=== PATIENT | male | born 1980 | race Caucasian/White ===

== ENCOUNTER 2020-01-08 08:37 | Outpatient (CLI) | payer OTHER, SELFPAY ==
[2020-01-08 08:51] LABS: Add Urine Microscopic? NO; Appearance Urine Clear (Clear); Bilirubin Urine Negative (Negative); Blood Urine Negative (Negative); Color Urine Yellow (Yellow); Glucose Urine UA Negative (Negative); Ketones Urine Negative (Negative); Leukocyte Esterase Ur Negative LEU/UL (Negative); Nitrate Urine Negative (Negative); Protein Urine Negative (Negative); Urobilinogen Urine 0.2 mg/dL (0.2-1.0)
[2020-01-08 09:03] LABS: Creatinine Urine 91.76 mg/dL (40-278); Hemoglobin A1C 5.9 % (<5.7); MALB Creatinine Ratio 5.2 mg/g (0-30); Microalbumin Urine Random 4.8 mg/L
[2020-01-08 09:37] LABS: Alanine Aminotransferase 59 U/L (16-63); Albumin Level 4.1 g/dL (3.4-5.0); Alkaline Phosphatase 82 U/L (46-116); Anion Gap 14.4 mmol/L (7-16); Aspartate Amino Transferase 32 U/L (15-37); Bilirubin,Total 0.9 mg/dL (0.00-1.00); Blood Urea Nitrogen 17 mg/dL (7-18); Carbon Dioxide 27 mmol/L (21-32); Chloride 101 mmol/L (98-108); Cholesterol 198 mg/dL (0-200); Creatine Kinase 157 U/L (39-308); Estimated Glomerular Filt Rate > 60; Glucose 105 mg/dL (70-99); HDL Direct 42 mg/dL (40-60); LDL Cholesterol Calculated 118 mg/dL (<130); Osmolality Calculated 287 mOsm/kg (285-295); Potassium 4.4 mmol/L (3.5-5.1); Sodium 138 mmol/L (136-145); Triglycerides 188 mg/dL (0-150)
== END 2020-01-08 08:38 | disposition home or self-care (01) ==
LOC: CHSLAB 08:43
PROVIDERS: PCP Internal Medicine; Visit Provider Internal Medicine
DX: E78.5 Hyperlipidemia, unspecified (principal); R73.01 Impaired fasting glucose
CPT/HCPCS: 36415; 80053; 80061; 81003; 82043; 82550; 83036

== ENCOUNTER 2020-08-19 15:34 | Outpatient (CLI) | payer OTHER, SELFPAY ==
[2020-08-19 15:53] LABS: Basophils Absolute Auto 0.05 K/mm3 (0.00-0.10); Basophils Percent Auto 0.7 % (0.0-1.0); Eosinophils Absolute Auto 0.06 K/mm3 (0.02-0.50); Eosinophils Percent Auto 0.9 % (1.0-6.0); Hematocrit 47.7 % (40.0-54.0); Immature Granulocyte Absolute 0.03 K/mm3 (0.00-0.00); Immature Granulocyte Percent A 0.4 % (0.0-0.0); Lymphocytes Absolute Auto 2.18 K/mm3 (1.10-4.50); Lymphocytes Percent Auto 31.2 % (18.0-42.0); Mean Corpuscular HGB Conc 33.5 g/dL (32.0-36.0); Mean Corpuscular Volume 86.4 fL (78.0-102.0); Mean Platelet Volume 9.9 fl (8.7-11.0); Monocytes Absolute Auto 0.69 K/mm3 (0.10-0.90); Monocytes Percent Auto 9.9 % (2.0-11.0); Neutrophils Percent Auto 56.9 % (50.0-70.0); Platelet Count Result 281 K/mm3 (150-420); Red Blood Count 5.52 M/mm3 (4.70-6.10); Red Cell Distribution Width 12.8 % (11.6-14.4)
[2020-08-19 15:54] LABS: Add Urine Microscopic? NO; Appearance Urine Clear (Clear); Bilirubin Urine Negative (Negative); Blood Urine Negative (Negative); Color Urine Yellow (Yellow); Glucose Urine UA Negative (Negative); Ketones Urine Negative (Negative); Leukocyte Esterase Ur Negative (Negative); Nitrate Urine Negative (Negative); Protein Urine Negative (Negative); Specific Grav Ur >= 1.030 (1.010-1.020); Urobilinogen Urine 0.2 mg/dL (0.2-1.0); pH Urine 5.5 (5.0-8.0)
[2020-08-19 16:02] LABS: Hemoglobin A1C 5.6 % (<5.7)
[2020-08-19 16:31] LABS: Alanine Aminotransferase 57 U/L (16-63); Albumin Level 4.7 g/dL (3.4-5.0); Alkaline Phosphatase 87 U/L (46-116); Anion Gap 10 mmol/L (8-16); Aspartate Amino Transferase 31 U/L (15-37); Bilirubin,Total 1.4 mg/dL (0.00-1.00); Blood Urea Nitrogen 20 mg/dL (7-18); Calcium 9.7 mg/dL (8.5-10.1); Carbon Dioxide 27 mmol/L (21-32); Chloride 101 mmol/L (98-108); Cholesterol 182 mg/dL (0-200); Creatine Kinase 162 U/L (39-308); Estimated Glomerular Filt Rate > 60; Glucose 92 mg/dL (70-99); HDL Direct 35 mg/dL (40-60); LDL Cholesterol Calculated 107 mg/dL (<130); Osmolality Calculated 288 mOsm/kg (285-295); Potassium 4.2 mmol/L (3.5-5.1); Sodium 138 mmol/L (136-145); Total Protein 7.6 g/dL (6.4-8.2); Triglycerides 202 mg/dL (0-150)
== END 2020-08-19 15:35 | disposition home or self-care (01) ==
LOC: CHSLAB 15:35
PROVIDERS: PCP Internal Medicine; Visit Provider Internal Medicine
DX: R73.01 Impaired fasting glucose (principal); I10 Essential (primary) hypertension; E78.2 Mixed hyperlipidemia; J44.9 Chronic obstructive pulmonary disease, unspecified
CPT/HCPCS: 36415; 80053; 80061; 81003; 82550; 83036; 85025

== ENCOUNTER 2022-06-22 14:56 | Emergency (ER) | payer OTHER, SELFPAY ==
[2022-06-22 15:03] VITALS: BP 155/95; PULSE 107; RESP 18; TEMP 36.7; O2SAT 95
[2022-06-22] MEDS: LIDOCAINE HCL 1% PF 30 ML VIAL (16:01)
--- NOTE | 2022-06-22 16:08 | ED.GENADULT ---
HPI - General Adult General Chief complaint: Unspecified Stated complaint: hemorrhoids Time Seen by Provider: 06/22/22 15:16 History of Present Illness HPI narrative: Patient is a 42-year-old male who presents ER with concern for hemorrhoids. He has been applying A&E ointment as well as Preparation H with scheduled pads for several days without improvement. Has history of hemorrhoids previously. No bleeding. Reports that all began when he had 2 days of diarrhea that he caught from his child. He can feel swelling in his left rectal region but no treatments improvement. Review of Systems Review of Systems: All systems reviewed & are unremarkable except as noted in HPI and below Constitutional: Constitutional: Denies chills and Denies fever(s) Gastrointestinal: Gastrointestinal: Reports diarrhea, Denies nausea and Denies vomiting Comments: rectal pain PMFSH Past Medical History Medical History (Updated 06/22/22 @ 16:21 by Breezy Desouza MD) Hyperlipidemia Hypertension Surgical History Surgical History (Updated 06/22/22 @ 16:21 by Breezy Desouza MD) No pertinent past surgical history Exam Narrative: GENERAL: Well-appearing, well-nourished, and in no acute distress. HEAD: Normocephalic, atraumatic. ENT: Mucous membranes moist. CHEST: Clear to auscultation. No respiratory distress. HEART: Regular rate and rhythm. Normal peripheral pulses. Rectal: Nonthrombosed nonbleeding external hemorrhoid on the right side. Left perianal area with fluctuant abscess but no cellulitis. EXTREMITIES: Normal range of motion. No edema. SKIN: Warm, dry, no rash. NEURO: Alert and oriented x3. PSYCH: Normal mood and affect. Course Vital Signs Vital signs: Vital Signs Temperature 98.0 F 06/22/22 15:03 Pulse Rate 107 H 06/22/22 15:03 Respiratory Rate 18 06/22/22 15:03 Blood Pressure 155/95 H 06/22/22 15:03 Pulse Oximetry 95 06/22/22 15:03 Temperature 98.0 F 06/22/22 15:03 Pulse Rate 107 H 06/22/22 15:03 Respiratory Rate 18 06/22/22 15:03 Blood Pressure 155/95 H 06/22/22 15:03 Pulse Oximetry 95 06/22/22 15:03 Procedures Abscess I/D fernando-rectal: Date of Incision: 06/22/22 Time of Incision: 15:50 Side (if applicable): left Local Anesthetic: lidocaine 1% Amount of anesthesia used (mL): 2 Technique: incised with #11 blade Packing used?: iodoform I&D Results: Pus Medical Decision Making Vital Signs Vital Signs: Vital Signs Temperature 98.0 F 06/22/22 15:03 Pulse Rate 107 H 06/22/22 15:03 Respiratory Rate 18 06/22/22 15:03 Blood Pressure 155/95 H 06/22/22 15:03 Pulse Oximetry 95 06/22/22 15:03 Temperature 98.0 F 06/22/22 15:03 Pulse Rate 107 H 06/22/22 15:03 Respiratory Rate 18 06/22/22 15:03 Blood Pressure 155/95 H 06/22/22 15:03 Pulse Oximetry 95 06/22/22 15:03 Discharge Plan Discharge Clinical Impression: Perianal abscess Patient Disposition: Home, Self-Care Condition: Stable Instructions: Antibiotic Form, Rectal Abscess (ED), Abscess Incision and Drainage (DC) Additional Instructions: You had an abscess incised and drained in the ER. Remove your packing in 2 days. Take Bactrim DS to help with healing. Take hydrocodone with acetaminophen for pain. Return to the ER if you have increased pain, you have fever over 100.4 ?F, or you have additional concerns. Prescriptions: New sulfamethoxazole-trimethoprim [Bactrim DS] 800-160 mg tablet 1 tablet PO Q12H Qty: 14 0RF hydrocodone-acetaminophen 5-325 mg tablet 1 tablet PO Q6H PRN (Reason: pain) Qty: 10 0RF Follow-up/Referrals: Juana Magana MD [Primary Care Provider] - Homer Aponte MD [Physician] - 1 Week
== END 2022-06-22 16:52 | disposition home or self-care (01) ==
LOC: ANHED 16:44
PROVIDERS: Emergency Provider Emergency Medicine; PCP Internal Medicine
DX: K61.0 Anal abscess (principal); E78.5 Hyperlipidemia, unspecified; I10 Essential (primary) hypertension; K64.4 Residual hemorrhoidal skin tags
CPT/HCPCS: 46040; 46050; 99283

== ENCOUNTER 2022-07-23 07:55 | Emergency (ER) | payer OTHER, SELFPAY ==
--- NOTE | 2022-07-23 08:24 | ED.SKABFB ---
HPI - Skin/Abscess/Foreign Bdy General Chief complaint: Skin/Abscess/Foreign Body Stated complaint: perianal abscess Time Seen by Provider: 07/23/22 07:57 History of Present Illness HPI narrative: Patient is a 42-year-old male who presents ER with concerns for perianal abscess. Recently had 1 incised and drained. He felt like it healed well. Over the last couple days he has had recurrence and feels like there is some induration extending out into his buttock no drainage. No fevers or chills or sweats. Related Data Allergies Allergy/AdvReac Type Severity Reaction Status Date / Time No Known Allergies Allergy Verified 07/23/22 07:59 Review of Systems Constitutional: Constitutional: Denies chills and Denies fever(s) Gastrointestinal: Gastrointestinal: Denies abdominal pain, Denies diarrhea, Denies nausea and Denies vomiting Integumentary/Breasts: Skin/Breast: Denies rash and Denies skin ulcer Comments: Abscess near the rectum left buttock with some induration of the skin. PMFSH Past Medical History Medical History (Updated 07/23/22 @ 08:41 by Breezy Desouza MD) Hyperlipidemia Hypertension Surgical History Surgical History (Updated 06/22/22 @ 16:21 by Breezy Desouza MD) No pertinent past surgical history Exam Narrative: GENERAL: Well-appearing, well-nourished, and in no acute distress. HEAD: Normocephalic, atraumatic. Rectal: Left perianal abscess about 1-1/2 cm in diameter. No significant surrounding cellulitis or induration. Small nonthrombosed nonbleeding hemorrhoid on the right side. EXTREMITIES: Normal range of motion. No edema. SKIN: Warm, dry, no rash. NEURO: Alert and oriented x3. PSYCH: Normal mood and affect. Course Course Emergency Course: Abscess I&D needed. Likely a cystic abscess. Again recommend he follow-up with general surgery. Procedures Abscess I/D fernando-rectal: Date of Incision: 07/23/22 Time of Incision: 08:39 Side (if applicable): left Local Anesthetic: lidocaine 1% Amount of anesthesia used (mL): 2 Technique: incised with #15 blade Irrigation: No Packing used?: iodoform I&D Results: Pus Discharge Plan Discharge Clinical Impression: Perianal abscess Patient Disposition: Home, Self-Care Condition: Stable Instructions: Antibiotic Form, Abscess (ED) Additional Instructions: Return the ER if you have increased pain, you cannot keep down food or water, you have fever over 100.4 ?F, you have additional concerns. Prescriptions: New cefuroxime axetil 500 mg tablet 500 mg PO BID Qty: 10 0RF No Action sulfamethoxazole-trimethoprim [Bactrim DS] 800-160 mg tablet 1 tablet PO Q12H Qty: 14 0RF hydrocodone-acetaminophen 5-325 mg tablet 1 tablet PO Q6H PRN (Reason: pain) Qty: 10 0RF Follow-up/Referrals: Mari Pugh MD [Physician] - 1 Week Juana Magana MD [Primary Care Provider] - 1 Week
[2022-07-23 08:54] VITALS: BP 135/95; PULSE 102; RESP 14; O2SAT 94
== END 2022-07-23 08:45 | disposition home or self-care (01) ==
PROVIDERS: Emergency Provider Emergency Medicine; PCP Internal Medicine
DX: K61.0 Anal abscess (principal); E78.5 Hyperlipidemia, unspecified; I10 Essential (primary) hypertension
CPT/HCPCS: 46040; 46050; 99283

== ENCOUNTER 2023-01-25 12:18 | Outpatient (CLI) | payer OTHER, SELFPAY ==
[2023-01-25 13:11] LABS: Anion Gap 10 mmol/L (8-16); Blood Urea Nitrogen 51 mg/dL (7-18); Calcium 11.1 mg/dL (8.5-10.1); Carbon Dioxide 29 mmol/L (21-32); Chloride 103 mmol/L (98-108); Estimated Glomerular Filt Rate 21; Glucose 95 mg/dL (70-99); Osmolality Calculated 307 mOsm/kg (285-295); Potassium 4.4 mmol/L (3.5-5.1); Sodium 142 mmol/L (136-145)
== END 2023-01-25 12:19 | disposition home or self-care (01) ==
LOC: CHSLAB 12:20
PROVIDERS: PCP Internal Medicine; Visit Provider Internal Medicine
DX: I10 Essential (primary) hypertension (principal)
CPT/HCPCS: 36415; 80048

== ENCOUNTER 2024-10-26 08:29 | Observation (INO) | payer OTHER, SELFPAY ==
[2024-10-26] VITALS (8 sets, daily range): BP systolic 119–152; BP diastolic 75–115; PULSE 75–124; RESP 12–23; TEMP 36.1–37; O2SAT 92–98; BMI 43.4
--- NOTE | ~2024-10-26 | CT_ITS ---
EXAMINATION: CT abdomen pelvis w con DATE: 10/26/2024 09:27 INDICATION: Abdominal distention and pain. Tachycardia. TECHNIQUE: Computed tomography (CT) of the abdomen and pelvis was performed with 100 mL Omnipaque-350 intravenous contrast. Automated exposure control and iterative reconstruction technique were employe d. The dose-length product was 1402.03 mGy-cm. COMPARISON: Abdominal ultrasound dated 12/18/2016 FINDINGS: Elevation the right hemidiaphragm with right basilar atelectasis. Heart size is normal. No pericardia l or pleural effusion. Dilation the common bile duct which measures up to 1.5 cm likely related to pr ior cholecystectomy with surgical clips the gallbladder fossa. No intrahepatic biliary ductal dilatio n. Diffuse hepatic steatosis. There are a couple low-attenuation hepatic cysts the larger measuring 1 .6 cm in the right hepatic lobe, both which can be seen on the prior ultrasound. Spleen, pancreas, bi lateral adrenal glands and kidneys are normal. There is fluid throughout multiple loops of small jessica l as well as proximal colon consistent with nonspecific diarrhea. There is mucosal enhancement and ed ematous wall thickening of multiple loops of ileum in the right lower quadrant extending to the termi nal ileum consistent with nonspecific ileitis. Bladder and prostate are normal. Small amount of ascit es in the lower abdomen and pelvis. No abscess or free intraperitoneal gas. Small bilateral fat-conta ining inguinal hernias. No pathologically enlarged abdominal or pelvic lymphadenopathy. Severe spondy losis at L5-S1. Otherwise mild spondylosis and more cephalad lumbar and lower thoracic spine. Chronic appearing minimal anterior wedging at T7 and T8. IMPRESSION: 1. Wall thickening in the distal ileum consistent with nonspecific ileitis which could be infectious or inflammatory in etiology. 2. Likely secondary diarrhea with fluid in the proximal colon. 3. Diffuse hepatic steatosis. 4. Right basilar atelectasis along side the elevated right hemidiaphragm. Reviewed, dictated and finalized at location A. IMPRESSION: 1. Wall thickening in the distal ileum consistent with nonspecific ileitis whic h could be infectious or inflammatory in etiology. 2. Likely secondary diarrhea with fluid in the proximal colon. 3. Diffuse hepatic steatosis. 4. Right basilar atelectasis along side the elevated right hemidiaphragm.
[2024-10-26 08:47] LABS: Basophils Absolute Auto 0.1 K/mm3 (0.0-0.1); Basophils Percent Auto 0.5 % (0.2-1.2); Eosinophils Absolute Auto 0.1 K/mm3 (0-0.3); Eosinophils Percent Auto 0.6 % (0-4.4); Hematocrit 61.2 % (42.0-52.0); Immature Granulocyte Absolute 0.05 K/mm3 (0.00-0.031); Immature Granulocyte Percent A 0.4 % (0-0.5); Lymphocytes Absolute Auto 1.46 K/mm3 (0.9-3.2); Lymphocytes Percent Auto 10.7 % (18.3-44.2); Mean Corpuscular HGB Conc 32.7 g/dl (32-36); Mean Corpuscular Hemoglobin 29.5 pg (26-34); Mean Corpuscular Volume 90.1 fl (80-100); Mean Platelet Volume 9.9 fl (7.4-10.4); Monocytes Absolute Auto 1.2 K/mm3 (0.1-0.6); Monocytes Percent Auto 8.9 % (2.6-8.5); Neutrophils Absolute Auto 10.8 K/mm3 (1.3-6.7); Neutrophils Percent Auto 78.9 % (45.5-73.1); Platelet Count Result 312 k/mm3 (150-375); Red Blood Count 6.79 M/mm3 (4.6-6.20); Red Cell Distribution Width 13.7 % (11.5-14.5); White Blood Count 13.7 K/mm3 (4.5-10.0)
[2024-10-26 08:58] LABS: Alanine Aminotransferase 95 U/L (6-50); Albumin Level 4.9 g/dL (3.5-5.1); Alkaline Phosphatase 85 U/L (38-126); Anion Gap 12 mmol/L (4-12); Aspartate Amino Transferase 68 U/L (17-59); Bilirubin,Total 2.1 mg/dL (0.2-1.3); Blood Urea Nitrogen 14 mg/dL (9-20); Calcium 9.8 mg/dL (8.4-10.2); Carbon Dioxide 24 mmol/L (22-30); Chloride 101 mmol/L (98-107); Estimated CRCL calculation 115 ml/min; Estimated Glomerular Filt Rate > 60; Glucose 128 mg/dL (65-110); Lipase 135 U/L (23-300); Potassium 4.2 mmol/L (3.4-5.0); Sodium 137 mmol/L (137-145)
--- NOTE | 2024-10-26 08:59 | ED.ABDPAIN ---
HPI - Abdominal Pain General Chief Complaint: Abdominal Pain Stated Complaint: abd pain Time Seen by Provider: 10/26/24 08:35 History of Present Illness HPI narrative: 44-year-old male with a history of hypertension, hyperlipidemia presenting with abdominal pain. Started 3-4 days ago and has been progressively worsening. Feels very distended. States that he has had very small bowel movements have only diarrhea. He has been passing a small amount of flatus. He had similar symptoms a few months ago but it only lasted for about a day so he was hoping that this episode resolved on its own. Prior surgical history of cholecystectomy. Related Data Home Medications ?Medication ?Instructions ?Recorded ?Confirmed ?Last Taken ?Type atorvastatin 40 mg tablet 40 mg PO DAILY 07/27/22 07/31/22 Unknown History fenofibrate 40 mg tablet 40 mg PO DAILY 07/27/22 07/31/22 Unknown History hydrochlorothiazide 12.5 mg tablet 12.5 mg PO DAILY 07/27/22 07/31/22 Unknown History Allergies Allergy/AdvReac Type Severity Reaction Status Date / Time No Known Allergies Allergy Verified 10/26/24 08:38 Review of Systems Review of Systems: All systems reviewed & are unremarkable except as noted in HPI and below PMFSH Past Medical History Medical History Hyperlipidemia Hypertension Surgical History Surgical History History of surgery on arm History of cholecystectomy Family History Family History Father Hypertension Social History Social History Social History: caffeine use: drinks soda occasionally Years smoked: 23 Smoking status: Former smoker Tobacco type: cigars Additional smoking assessment comments: Smokes 4-5 cigars/year Alcohol intake: current Alcohol use details: drinks bourbon & vodka weekly Additional living arrangements comments: Additional occupation/education comments: chef manager Exam Narrative: GENERAL: Appears uncomfortable, nontoxic, pleasant cooperative HEAD: Normocephalic, atraumatic. EYES: PERRLA and EOMI. ENT: Mucous membranes moist. NECK: Supple. CHEST: Clear to auscultation. No respiratory distress. HEART: Tachycardic, regular rhythm ABDOMEN: Distended abdomen with diffuse tenderness but especially in the upper quadrants EXTREMITIES: Normal range of motion. SKIN: Warm, dry, no rash. NEURO: No focal deficits. Alert and oriented x3. PSYCH: Normal mood and affect. Course Vital Signs Vital signs: Vital Signs Temperature 97.9 F 10/26/24 08:35 Pulse Rate 124 H 10/26/24 08:35 Respiratory Rate 20 10/26/24 08:35 Blood Pressure 138/115 H 10/26/24 08:35 Pulse Oximetry 97 10/26/24 08:35 Oxygen Delivery Room Air 10/26/24 08:35 Temperature 97.9 F 10/26/24 08:35 Pulse Rate 118 H 10/26/24 10:42 Respiratory Rate 23 H 10/26/24 10:42 Blood Pressure 131/85 10/26/24 10:42 Pulse Oximetry 95 10/26/24 10:42 Oxygen Delivery Room Air 10/26/24 08:35 MDM - Abdominal Pain MDM Narrative Medical decision making narrative: 44-year-old male presenting with abdominal pain. Patient tachycardic, otherwise vitals within normal limits. Exam remarkable for the above. Blood work with white count of 13.7, hemoglobin of 20. Lactic acid 2.3. UA with positive nitrates, bacteria, numerous casts. IV fluids are ongoing. CT abdomen pelvis shows ileitis and diarrheal state, no other acute abnormalities. IV Rocephin and Flagyl have been ordered. Feel he would benefit from admission for IV hydration and antibiotics. He is agreeable this plan. I spoke with the hospitalist who has accepted him for admission. Differential Diagnosis Differential diagnosis: Likely abdominal pain, acute appendicitis, constipation, gastroenteritis, pancreatitis and small bowel obstruction Medical Records Attestation: I reviewed the patient's medical records. Lab Data Attestation: I reviewed the patient's lab results. 10/26/24 08:42 10/26/24 08:42 Labs: Lab Results 10/26/24 10/26/24 10/26/24 Range/Units 08:42 08:46 08:50 WBC 13.7 H (4.5-10.0) K/mm3 RBC 6.79 H (4.6-6.20) M/mm3 Hgb 20.0 H (14.0-18.0) g/dL Hct 61.2 H (42.0-52.0) % MCV 90.1 (80-100) fl MCH 29.5 (26-34) pg MCHC 32.7 (32-36) g/dl RDW 13.7 (11.5-14.5) % Plt Count 312 (150-375) k/mm3 MPV 9.9 (7.4-10.4) fl Immature Gran % (Auto) 0.4 (0-0.5) % Neut % (Auto) 78.9 H (45.5-73.1) % Lymph % (Auto) 10.7 L (18.3-44.2) % [place] % (Auto) 8.9 H (2.6-8.5) % Eos % (Auto) 0.6 (0-4.4) % Baso % (Auto) 0.5 (0.2-1.2) % Lymph # (Auto) 1.46 (0.9-3.2) K/mm3 [place] # (Auto) 1.2 H (0.1-0.6) K/mm3 Eos # (Auto) 0.1 (0-0.3) K/mm3 Baso # (Auto) 0.1 (0.0-0.1) K/mm3 Abs Immat Gran (auto) 0.05 H (0.00-0.031) K/mm3 Absolute Neuts (auto) 10.8 H (1.3-6.7) K/mm3 Absolute Nucleated RBC 0.000 (0.0-0.012) K/mm3 Nucleated RBC % 0.0 (0.0-0.2) % Sodium 137 (137-145) mmol/L Potassium 4.2 (3.4-5.0) mmol/L Chloride 101 (98-107) mmol/L Carbon Dioxide 24 (22-30) mmol/L Anion Gap 12 (4-12) mmol/L BUN 14 (9-20) mg/dL Creatinine 0.93 (0.7-1.3) mg/dL Estim Creat Clear Calc 115 ml/min Estimated GFR > 60 (59 - ) Glucose 128 H (65-110) mg/dL Lactic Acid 2.3 H (0.7-2.0) mmol/L Calcium 9.8 (8.4-10.2) mg/dL Total Bilirubin 2.1 H (0.2-1.3) mg/dL AST 68 H (17-59) U/L ALT 95 H (6-50) U/L Alkaline Phosphatase 85 (38-126) U/L Total Protein 8.0 (6.3-8.2) g/dL Albumin 4.9 (3.5-5.1) g/dL Lipase 135 (23-300) U/L Urine Color Dark yellow (Yellow) Urine Appearance Cloudy H (Clear) Urine pH 5.5 (5.0-9.0) Ur Specific [place] 1.033 (1.001-1.035) Urine Protein 1+ H (Negative) mg/dL Urine Glucose (UA) Negative (Negative) mg/dL Urine Ketones 1+ H (Negative) mg/dL Ur Blood (Man) Negative (Negative) Urine Nitrate Positive H (Negative) Urine Bilirubin 2+ H (Negative) Urine Urobilinogen 1.0 (<2.0) mg/dL Add Ur Microanalysis Reviewed Leukocyte Esterase Rfl Trace H (Negative) CADY/UL Urine RBC 0-2 (0-2) /hpf Urine WBC 0-5 (0-3) /hpf Ur Squamous Epith Cells Occasional (Few) /hpf Urine Bacteria 1+ /hpf Urine Casts 11-20 Hyaline Casts Present (None) /lpf Urine Mucus Present /lpf /11/15 Range/Units 11:32 WBC (4.5-10.0) K/mm3 RBC (4.6-6.20) M/mm3 Hgb (14.0-18.0) g/dL Hct (42.0-52.0) % MCV (80-100) fl MCH (26-34) pg MCHC (32-36) g/dl RDW (11.5-14.5) % Plt Count (150-375) k/mm3 MPV (7.4-10.4) fl Immature Gran % (Auto) (0-0.5) % Neut % (Auto) (45.5-73.1) % Lymph % (Auto) (18.3-44.2) % [place] % (Auto) (2.6-8.5) % Eos % (Auto) (0-4.4) % Baso % (Auto) (0.2-1.2) % Lymph # (Auto) (0.9-3.2) K/mm3 [place] # (Auto) (0.1-0.6) K/mm3 Eos # (Auto) (0-0.3) K/mm3 Baso # (Auto) (0.0-0.1) K/mm3 Abs Immat Gran (auto) (0.00-0.031) K/mm3 Absolute Neuts (auto) (1.3-6.7) K/mm3 Absolute Nucleated RBC (0.0-0.012) K/mm3 Nucleated RBC % (0.0-0.2) % Sodium (137-145) mmol/L Potassium (3.4-5.0) mmol/L Chloride (98-107) mmol/L Carbon Dioxide (22-30) mmol/L Anion Gap (4-12) mmol/L BUN (9-20) mg/dL Creatinine (0.7-1.3) mg/dL Estim Creat Clear Calc ml/min Estimated GFR (59 - ) Glucose (65-110) mg/dL Lactic Acid 0.9 (0.7-2.0) mmol/L Calcium (8.4-10.2) mg/dL Total Bilirubin (0.2-1.3) mg/dL AST (17-59) U/L ALT (6-50) U/L Alkaline Phosphatase (38-126) U/L Total Protein (6.3-8.2) g/dL Albumin (3.5-5.1) g/dL Lipase (23-300) U/L Urine Color (Yellow) Urine Appearance (Clear) Urine pH (5.0-9.0) Ur Specific [place] (1.001-1.035) Urine Protein (Negative) mg/dL Urine Glucose (UA) (Negative) mg/dL Urine Ketones (Negative) mg/dL Ur Blood (Man) (Negative) Urine Nitrate (Negative) Urine Bilirubin (Negative) Urine Urobilinogen (<2.0) mg/dL Add Ur Microanalysis Leukocyte Esterase Rfl (Negative) CADY/UL Urine RBC (0-2) /hpf Urine WBC (0-3) /hpf Ur Squamous Epith Cells (Few) /hpf Urine Bacteria /hpf Urine Casts Hyaline Casts (None) /lpf Urine Mucus /lpf Imaging Data Radiologist's impression: ITS Impressions Abdomen/Pelvis CT 10/26/24 09:35 IMPRESSION: 1. Wall thickening in the distal ileum consistent with nonspecific ileitis which could be infectious or inflammatory in etiology. 2. Likely secondary diarrhea with fluid in the proximal colon. 3. Diffuse hepatic steatosis. 4. Right basilar atelectasis along side the elevated right hemidiaphragm. Critical Care Time Critical Care Time Critical Care Time: No Discharge Plan Discharge Clinical Impression: Ileitis, Diarrhea, UTI (urinary tract infection), Dehydration Patient Disposition: Still a Patient Condition: Stable Instructions: Antibiotic Form Patient Language: Malagasy Prescriptions: No Action atorvastatin 40 mg tablet 40 mg PO DAILY hydrochlorothiazide 12.5 mg tablet 12.5 mg PO DAILY fenofibrate 40 mg tablet 40 mg PO DAILY cefuroxime axetil 500 mg tablet 500 mg PO BID Qty: 10 0RF Follow-up/Referrals: Juana Magana MD [Primary Care Provider] -
[2024-10-26 09:02] LABS: Add Urine Microscopic? YES; Appearance Urine Cloudy (Clear); Bilirubin Urine 2+ (Negative); Blood Urine Negative (Negative); Glucose Urine UA Negative (Negative); Ketones Urine 1+ mg/dL (Negative); Leukocyte Esterase Ur Trace LEU/UL (Negative); Nitrate Urine Positive (Negative); Protein Urine 1+ mg/dL (Negative); RBC Urine 0-2 /hpf (0-2); Specific Grav Ur 1.033 (1.001-1.035); Squamous Epithelial Cell Urine Occasional /hpf (Few); WBC Urine 0-5 /hpf (0-3); pH Urine 5.5 (5.0-9.0)
[2024-10-26 09:06] LABS: Lactic Acid Reflex 2.3 mmol/L (0.7-2.0)
[2024-10-26 09:06] LABS: Hyaline Casts Urine Present /lpf; Mucus Urine Present /lpf; Need Manual Microscopic Reviewed
[2024-10-26 09:07] LABS: Bacteria Urine 1+ /hpf; Color Urine Dark Yellow (Yellow)
[2024-10-26] MEDS: SODIUM CHLORIDE 0.9% IV 1,000 ML 999 ML IV CONT ×2 (09:14→10:41)
[2024-10-26] MEDS: HYDROmorphone HCL INJ (*CRX) 2 MG/ML VIAL 0.5 MG IV PUSH ×2 (09:14→13:22)
[2024-10-26] MEDS: ONDANSETRON INJ 4 MG/2 ML VIAL IV PUSH (09:14)
--- NOTE | 2024-10-26 09:17 | PC.NURSE ---
Pt to CT scan via stretcher at this time. Fluids infusing, medications given.
[2024-10-26] MEDS: HYDROmorphone HCL INJ (*CRX) 2 MG/ML VIAL 1 MG IV PUSH (10:12)
--- OUTSIDE RECORDS SUMMARY | 2024-10-26 10:28 | XMS_ITS | Clinical Summary ---
Author Organization [facility] [employer] Address [address] [place] [address] Care Team Providers Care Barrel Lathe Operator Name Role Phone Dutch Silva MD Primary Care Provider [phone] Source Comments [facility] [employer],non-owned Affiliates and Associated Physician Practices is amultiple site organization consisting of ambulatory clinics and hospital sitesin [place], [place], [place] and [place]. This disclosure is being madepursuant to the Care Everywhere program and may not contain all information available regarding this patient. Last updated 18.[facility] [employer] Allergies No known active allergies Medications * Be aware that medications may not be up to date on this document. Alwaysverify current medications with the patient. 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 Gender Identity Not on file Sexual Orientation Not on file 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 Not on file Not on file Not on file Last Filed Vital Signs Vital Sign Reading Time Taken Comments Blood Pressure 160/94 03/11/2012 4:22 PM CDT Pulse 108 03/11/2012 4:01 PM CDT Temperature - - Respiratory Rate - - Oxygen Saturation 96% 03/11/2012 4:01 PM CDT Inhaled Oxygen Concentration - - Weight 95.3 kg (210 lb) 03/11/2012 4:01 PM CDT Height 175.3 cm (5' 9 ) 03/11/2012 4:01 PM CDT Body Mass Index 31.01 03/11/2012 4:01 PM CDT Plan of Treatment Health Maintenance Due Date Last Done Comments COLOGUARD (AGES 45-75) - COL ON CA SCREENING 1978 COLON MONITORING 1978 COLONOSCOPY - COLON CA SCREENING 1978 CT COLONOGRAPHY - COLON CA SCREENING 1978 Colorectal Cancer Screening 1978 FIT - COLON CA SCREENING 1978 FLEX SIG - COLON CA SCREENING 1978 LIPID TESTING 1978 HIV SCREENING 1993 HEPATITIS C SCREENING 05/18/1996 DTAP/TDAP/TD VACCINES (1 - Tdap) 1997 HEPATITIS B VACCINE (1 of 3 - 19+ 3-dose series) 1997 COVID-19 VACCINE (1 - 2023-2 5 season) 2024 DEPRESSION SCREENING 06/24/2024 INFLUENZA VACCINE (Season Ended) 2025 ZOSTER VACCINE (1 of 2) 2028 HIB VACCINE Aged Out No longer eligi ble based on patient's age to complete this topic HPV VACCINE Aged Out No longer eligi ble based on patient's age to complete this topic MENINGOCOCCAL (Group B) VACC INE SHARED DECISION-MAKING Aged Out No longer eligibl e based on patient's age to complete this topic MENINGOCOCCAL GROUPS A/C/Y/W VACCINE Aged Out No longer eligible b ased on patient's age to complete this topic PNEUMOCOCCAL VACCINE Aged Out No long er eligible based on patient's age to complete this topic Insurance ANTHEM Care Teams Barrel Lathe Operator Relationship Specialty Start Date End Date Dutch Silva MD PCP - General Family Medicine 03/11/12
[2024-10-26] MEDS: cefTRIAXone 2 GM/NS 100 ML 2 GM/100 ML BAG IVPB (10:41)
[2024-10-26 10:55] LABS: Reflex Lactic Acid Yes or No Add Lactic
[2024-10-26] MEDS: metroNIDAZOLE 500 MG/ISO 100ML 500 MG/100 ML BAG 100 MG IVPB ×2 (11:12→21:24)
[2024-10-26 11:55] LABS: Lactic Acid 0.9 mmol/L (0.7-2.0)
--- NOTE | 2024-10-26 12:21 | P.HP_ITS ---
H&P: HPI History of Present Illness Date/Time: 10/26/24 12:21 Chief Complaint: Abdominal pain Narrative: 44-year-old male possible a history of hyperlipidemia and hypertension presents the hospital with abdominal pain. Patient states that in the past tremors had abdominal pain has gone away and day or 2. This time the pain is last 5 days could be sharp in nature, with abdominal distension nausea and vomiting. He states that he has been unable to eat due to the pain. He states that he has vomited twice and was bile. Patient also states that he is having small amounts of diarrhea. He denies fevers or chills. Patient does not complain of burning on urination. However he states that he has to urinate several times throughout the night. His lab work in the ED shows hemoconcentration the hemoglobin of 20, leukocytosis at 13.7, total bili of 2.1, AST of 68, ALT of 95, UA is dark cloudy positive for nitrates, and trace leukocyte esterase. CT of abdomen pelvis shows Wall thickening in the distal ileum consistent with nonspecific ileitis which could be infectious or inflammatory in etiology and likely secondary diarrhea with fluid in the proximal colon. Review of Systems Review of Systems: 12 systems were reviewed and are negativ e except for as per HPI. [facility] Past Medical History Medical History Hyperlipidemia Hypertension Surgical History Surgical History History of surgery on arm History of cholecystectomy Family History Family History Father Hypertension Social History Social History Social History: caffeine use: drinks soda occasionally Years smoked: 23 Smoking status: Former smoker Tobacco type: cigarettes Additional smoking assessment comments: Smokes 4-5 cigars/year Alcohol intake: current Drinks per week: 20 Alcohol use details: drinks bourbon & vodka weekly Substance use: current Substance use type: marijuana Do You Feel Safe in your Home?: Yes Lack of Transportation: No Lack of Food: Never True Current Housing: I Have Housing Concerned About Future Housing: No Difficulty Paying Gas/Electric Bills: No Difficulty Paying for Meds: No Currently Unemployed: No Education: High School Diploma/GED Difficulty w/ Childcare or Family Care: No Additional living arrangements comments: Additional occupation/education comments: warehouse helper Spiritual care concerns: No Meds Home Medications and Allergies Home Medications ?Medication ?Instructions ?Recorded ?Confirmed ?Type atorvastatin 40 mg tablet 40 mg PO DAILY 07/27/22 10/26/24 History fenofibrate 40 mg tablet 40 mg PO DAILY 07/27/22 10/26/24 History hydrochlorothiazide 12.5 mg tablet 12.5 mg PO DAILY 07/27/22 10/26/24 History losartan 100 1 tablet PO DAILY 10/26/24 10/26/24 History mg-hydrochlorothiazide 12.5 mg tablet Allergies Allergy/AdvReac Type Severity Reaction Status Date / Time No Known Allergies Allergy Verified 10/26/24 08:38 Vital Signs Vital Signs - 24 hr 10/26/24 08:35 10/26/24 10:08 10/26/24 10:42 Temperature 97.9 F Pulse Rate 124 H 119 H 118 H Respiratory Rate 20 12 23 H Blood Pressure 138/115 H 151/98 H 131/85 Pulse Oximetry 97 96 95 Oxygen Delivery Room Air Exam Narrative: General: well appearing, appears stated age. HEENT: normocephalic, atraumatic. Mucous membranes moist. EOMI, PERRLA, bi lateral sclera anicteric, no conjunctival injection. Neck supple without JVD, lymphadenopathy, or bruit. Respiratory: clear to ascultation bilaterally. No rales/rhonic/wheezes. Cardiovascular: Regular rate and rhythm, normal S1-S2 upon ascultation. No murmurs, rubs, or clicks. PMI is nondisplaced, capillary refill less than 3 second. Abdomen: Distended firm. No rebound, no guarding. No CVA tenderness, no hepatosplenomegaly. Bowel sounds present to all four quadrants. No high pitch or tinkling sounds, resonant to percussion. Extremities: No cyanosis, clubbing, or edema present. Pulses are palpable 2/2. Active ROM to all four extremities. Neuro: Alert and orientated x 4. PERRLA. Cranial nerves 2-12 intact without focal deficit. Skin: Warm, dry, and intact, without rash, erythema, or lesion. Psych: pleasant, cooperative, normal speech, normal affect, no hallucinations, no dysarthia H&P: Results Labs Labs: Short CBC 10/26/24 Range/Units 08:42 WBC 13.7 H (4.5-10.0) K/mm3 Hgb 20.0 H (14.0-18.0) g/dL Hct 61.2 H (42.0-52.0) % Plt Count 312 (150-375) k/mm3 BMP 10/26/24 08:42 Sodium 137 Potassium 4.2 Chloride 101 Carbon Dioxide 24 BUN 14 Creatinine 0.93 Glucose 128 H Calcium 9.8 Liver Function 10/26/24 Range/Units 08:42 Total Bilirubin 2.1 H (0.2-1.3) mg/dL AST 68 H (17-59) U/L ALT 95 H (6-50) U/L Alkaline Phosphatase 85 (38-126) U/L Albumin 4.9 (3.5-5.1) g/dL Urine 10/26/24 Range/Units 08:46 Urine Color Dark yellow (Yellow) Urine Appearance Cloudy H (Clear) Urine pH 5.5 (5.0-9.0) Ur Specific [place] 1.033 (1.001-1.035) Urine Protein 1+ H (Negative) mg/dL Urine Glucose (UA) Negative (Negative) mg/dL Assessment and Plan Assessment and plan (1) Sepsis: Code(s): A41.9 - Sepsis, unspecified organism Status: Acute Assessment and Plan: Lactic acid on admission is 2.3 with repeat being 0.9 after fluid bolus IV antibiotic starting ED Blood cultures pending (2) Ileitis: Code(s): K52.9 - Noninfective gastroenteritis and colitis, unspecified Status: Acute Assessment and Plan: Okay for clear liquids IV fluids for hydration Continue Flagyl (3) Diarrhea: Code(s): R19.7 - Diarrhea, unspecified Status: Acute Assessment and Plan: C diff culture pending IV fluids for hydration (4) Dehydration: Code(s): E86.0 - Dehydration Status: Acute Assessment and Plan: Improved With hemoconcentration 2 L fluid bolus given in ED Repeat CBC in the morning (5) UTI (urinary tract infection): Code(s): N39.0 - Urinary tract infection, site not specified Status: Acute Assessment and Plan: Likely from urinary retention IV Rocephin Start Flomax (6) Fatty liver: Code(s): K76.0 - Fatty (change of) liver, not elsewhere classified Status: Acute Assessment and Plan: Elevated liver enzymes Repeat BMP in the morning (7) Hypertension: Qualifiers: Hypertension type: primary hypertension Qualified Code(s): I10 - Essential (primary) hypertension Code(s): I10 - Essential (primary) hypertension Status: Acute Assessment and Plan: Hold antihypertensives while hypotensive Quality VTE Prophylaxis VTE prophylaxis: mechanical ordered Hospitalist MIPS Advance Care Plan I have confirmed that the patient's Advanced Care Plan is present, code status is documented, or surrogate decision maker is listed in patient medical record.: Yes Medication Reconciliation I have utilized all available resources to obtain, update and review the patients current medications (includes all prescriptions, OTC, herbals, cannabis, and nutritional supplements).: Yes
[2024-10-26] MEDS: KETOROLAC 15 MG/ML VIAL (*BKC) IV PUSH (13:22)
--- NOTE | 2024-10-26 15:22 | ADMGEN ---
This patient, Howard Dunaway, was admitted to [facility] Surg Room 310-01. Patient/family oriented to hospital policies and general routines including ID bracelet, bed and alarms, visiting hours, pain management, procedures, bathroom and other care routines, personal items, smoking policy, room service/diet, and visiting hours. Information on how to activate the Rapid Response Team has been discussed. Patient/Family are encouraged to report perceived risks to care and to ask questions if they do not understand what they are told or what they should do.
[2024-10-26] MEDS: SODIUM CHLORIDE 0.9% IV 1,000 ML 125 ML IV CONT (15:53)
[2024-10-26] MEDS: TAMSULOSIN HCL 0.4 MG CAPSULE PO (20:43)
[2024-10-27 02:24] LABS: Toxigenic C. Diff NEGATIVE (NEGATIVE)
[2024-10-27] MEDS: metroNIDAZOLE 500 MG/ISO 100ML 500 MG/100 ML BAG 100 MG IVPB ×4 (04:00→21:14)
[2024-10-27 05:19] VITALS: BP 141/78; PULSE 102; RESP 16; TEMP 36.2; O2SAT 92
[2024-10-27 06:18] LABS: Basophils Absolute Auto 0.1 K/mm3 (0.0-0.1); Basophils Percent Auto 0.8 % (0.2-1.2); Eosinophils Absolute Auto 0.3 K/mm3 (0-0.3); Eosinophils Percent Auto 3.9 % (0-4.4); Hematocrit 47.1 % (42.0-52.0); Hemoglobin 15.2 g/dL (14.0-18.0); Immature Granulocyte Absolute 0.03 K/mm3 (0.00-0.031); Immature Granulocyte Percent A 0.5 % (0-0.5); Lymphocytes Absolute Auto 1.31 K/mm3 (0.9-3.2); Lymphocytes Percent Auto 20.3 % (18.3-44.2); Mean Corpuscular HGB Conc 32.3 g/dl (32-36); Mean Corpuscular Hemoglobin 29.7 pg (26-34); Mean Platelet Volume 10.3 fl (7.4-10.4); Monocytes Absolute Auto 0.6 K/mm3 (0.1-0.6); Monocytes Percent Auto 9.9 % (2.6-8.5); Neutrophils Absolute Auto 4.2 K/mm3 (1.3-6.7); Neutrophils Percent Auto 64.6 % (45.5-73.1); Platelet Count Result 206 k/mm3 (150-375); Red Blood Count 5.12 M/mm3 (4.6-6.20); Red Cell Distribution Width 13.2 % (11.5-14.5); White Blood Count 6.5 K/mm3 (4.5-10.0)
[2024-10-27 06:27] LABS: Alanine Aminotransferase 79 U/L (6-50); Albumin Level 3.6 g/dL (3.5-5.1); Alkaline Phosphatase 59 U/L (38-126); Anion Gap 7 mmol/L (4-12); Aspartate Amino Transferase 65 U/L (17-59); Bilirubin,Total 1.1 mg/dL (0.2-1.3); Blood Urea Nitrogen 13 mg/dL (9-20); Carbon Dioxide 25 mmol/L (22-30); Chloride 104 mmol/L (98-107); Estimated CRCL calculation 137 ml/min; Estimated Glomerular Filt Rate > 60; Glucose 87 mg/dL (65-110); Potassium 3.7 mmol/L (3.4-5.0); Sodium 136 mmol/L (137-145)
--- NOTE | 2024-10-27 07:53 | P.PNIM_ITS ---
Progress Note: A&P Assessment and Plan (1) Sepsis: Code(s): A41.9 - Sepsis, unspecified organism Status: Acute Assessment and Plan: Meets SIRS criteria: tachycardia, leukocytosis, lactic acidosis - lactic acid: 2.3 > WNL - Sepsis bolus given in ED - suspected source: UTI - blood cultures drawn on 10/26: pending - UA: cloudy appearance with 1+ protein, 1+ ketones, positive nitrates, 2+ bili, trace leukocytes, 1+ bacteria. Occasional squamous. - Urine culture collected on 10/26: pending - CT abdomen/pelvis showed wall thickening in the distal ileum consistent with nonspecific ileitis which could be infectious or inflammatory, likely secondary to diarrhea with fluid in proximal colon, diffuse hepatic steatosis, and right basilar atelectasis along side the elevated right hemidiaphragm. (2) UTI (urinary tract infection): Code(s): N39.0 - Urinary tract infection, site not specified Status: Acute Assessment and Plan: - UA: cloudy appearance with 1+ protein, 1+ ketones, positive nitrates, 2+ bili, trace leukocytes, 1+ bacteria. Occasional squamous. - UC obtained on 10/26: pending - No previous micro to be reviewed - started on Rocephin on 10/26 (3) Ileitis: Code(s): K52.9 - Noninfective gastroenteritis and colitis, unspecified Status: Acute Assessment and Plan: - CT abdomen/pelvis showed wall thickening in the distal ileum consistent with nonspecific ileitis which could be infectious or inflammatory, likely secondary to diarrhea with fluid in proximal colon - Flagyl started on 10/26 - Gentle IV fluid resuscitation discontinued - Clear liquid diet, advance as tolerated - C dif negative - Monitor vital signs, I&Os, track stool output, watch for bloody stools, neuro status and patient is a fall risk - Monitor serum electrolytes and CBC (4) Fatty liver: Code(s): K76.0 - Fatty (change of) liver, not elsewhere classified Status: Acute Assessment and Plan: - CT abdomen/pelvis showed diffuse hepatic steatosis - LFTs elevated on admission, tot bili 2.1, AST 68, ALT 95, alk phos 85. Downtrending. - Monitor (5) Hypertension: Qualifiers: Hypertension type: primary hypertension Qualified Code(s): I10 - Essential (primary) hypertension Code(s): I10 - Essential (primary) hypertension Status: Acute Assessment and Plan: Chronic Continue losartan 100 mg - HCTZ 12.5 mg daily Blood pressures remain stable, continue to monitor Time Spent With Patient Time with patient: 25 - 35 minutes Subjective Date/time seen: 10/27/24 07:53 Interval history: 44 year old male with past medical history of hypertension and hyperlipidemia presents to the hospital for abdominal pain. Patient is pleasant sitting up comfortably in his chair. He continues to endorse diarrhea but notes that this has returned back to his baseline since prior cholecystectomy. Denies any blood in his stool. Notes that his abdominal pain has improved. Tolerating clears well, advance as tolerated. Patient has no other complaints denying chest pain, palpitations, and shortness of breath. Review of Systems Review of Systems: All systems reviewed & are unremarkable except as noted in HPI and below Exam Narrative: AF HR 102 RR 16 SPO2 92 BP 141/78 General: male in no acute respiratory distress who is nontoxic appearing, lying semi recumbent in bed. HEENT: Normocephalic. Atraumatic. Extraocular movement intact. Sclera clear and anicteric. No facial asymmetry. Chest: Lungs are clear to auscultation bilaterally. No wheezes or crackles. CV: Heart was regular rate and rhythm. S1/S2. No murmurs, gallops, or rubs. Abd: Abdomen was soft. Slight epigastric discomfort. Nondistended. Positive bowel sounds. Ext: No clubbing, cyanosis, or edema. DP pulses bilaterally. Neuro: Patient is alert and oriented x4. Speech is clear. Objective Data Vital Signs Vital Signs: Vital Signs - 24 hr 10/26/24 08:35 10/26/24 10:08 10/26/24 10:42 Temperature 97.9 F Pulse Rate 124 H 119 H 118 H Respiratory Rate 20 12 23 H Blood Pressure 138/115 H 151/98 H 131/85 Pulse Oximetry 97 96 95 Oxygen Delivery Room Air 10/26/24 13:01 10/26/24 14:22 10/26/24 14:50 Temperature Pulse Rate 110 H 117 H 75 Respiratory Rate 18 17 16 Blood Pressure 119/76 135/99 H 125/87 Pulse Oximetry 96 95 98 Oxygen Delivery 10/26/24 15:27 10/26/24 15:42 10/26/24 21:19 Temperature 98.6 F 97.0 F L Pulse Rate 106 H 106 H Respiratory Rate 16 16 Blood Pressure 126/75 152/79 H Pulse Oximetry 96 92 Oxygen Delivery Room Air 10/27/24 05:19 Temperature 97.1 F L Pulse Rate 102 H Respiratory Rate 16 Blood Pressure 141/78 H Pulse Oximetry 92 Oxygen Delivery Intake/Output Intake/Output: Intake & Output 10/24/24 10/25/24 10/26/24 10/27/24 23:59 23:59 23:59 23:59 Intake Total 3300 400 Balance 3300 400 Meds/Results Medications: Active Medications Generic Name Dose Route Start Last Admin Trade Name Freq PRN Reason Stop Dose Admin Atorvastatin Calcium 40 mg 10/27/24 09:00 Atorvastatin 40 Mg Tablet PO DAILY NICANOR Enoxaparin Sodium 40 mg 10/27/24 09:00 Enoxaparin 40 Mg/0.4 Ml Syringe SUB-Q DAILY NICANOR Sodium Chloride 1,000 mls @ 125 mls/hr 10/26/24 12:30 10/27/24 00:00 Normal Saline Iv IV CONT 125 mls/hr .Q8H NICANOR Administration Ceftriaxone Sodium 1 gm in 50 mls @ 100 mls/hr 10/27/24 11:00 Rocephin 1 Gm/Ns 50 Ml IVPB Q24H NICANOR Metronidazole 500 mg in 100 mls @ 100 mls/hr 10/26/24 21:00 10/27/24 04:00 Flagyl 500 Mg/Iso Soln 100 Ml IVPB 100 mls/hr Q6H NICANOR Administration Ketorolac Tromethamine 15 mg 10/26/24 18:59 Ketorolac 15 Mg/Ml Vial (*Bkc) IV PUSH Q6H PRN Pain Rated 4-6 Miscellaneous Information 0 each 10/26/24 00:01 Fenofibrate 40mg Nonform We Stock 48mg Or Can Pt Bring From Home? XX 11/25/24 00:00 CLARIFY NICANOR Non-Formulary Medication 40 mg 10/27/24 09:00 Fenofibrate PO 11/26/24 08:59 DAILY NICANOR Ondansetron HCl 4 mg 10/26/24 19:00 Ondansetron Inj 4 Mg/2 Ml Vial IV PUSH Q6H PRN Nausea And Vomiting Tamsulosin HCl 0.4 mg 10/26/24 19:15 10/26/24 20:43 Tamsulosin Hcl 0.4 Mg Capsule PO 0.4 mg QAM NICANOR Administration Radiology Results: ITS Impressions Abdomen/Pelvis CT 10/26/24 09:35 IMPRESSION: 1. Wall thickening in the distal ileum consistent with nonspecific ileitis which could be infectious or inflammatory in etiology. 2. Likely secondary diarrhea with fluid in the proximal colon. 3. Diffuse hepatic steatosis. 4. Right basilar atelectasis along side the elevated right hemidiaphragm. Labs Labs: Laboratory Results - last 24 hr 10/26/24 10/26/24 10/26/24 08:42 08:46 08:50 WBC 13.7 H RBC 6.79 H Hgb 20.0 H Hct 61.2 H MCV 90.1 MCH 29.5 MCHC 32.7 RDW 13.7 Plt Count 312 MPV 9.9 Immature Gran % (Auto) 0.4 Neut % (Auto) 78.9 H Lymph % (Auto) 10.7 L [place] % (Auto) 8.9 H Eos % (Auto) 0.6 Baso % (Auto) 0.5 Lymph # (Auto) 1.46 [place] # (Auto) 1.2 H Eos # (Auto) 0.1 Baso # (Auto) 0.1 Abs Immat Gran (auto) 0.05 H Absolute Neuts (auto) 10.8 H Absolute Nucleated RBC 0.000 Nucleated RBC % 0.0 Sodium 137 Potassium 4.2 Chloride 101 Carbon Dioxide 24 Anion Gap 12 BUN 14 Creatinine 0.93 Estim Creat Clear Calc 115 Estimated GFR > 60 Glucose 128 H Lactic Acid 2.3 H Calcium 9.8 Total Bilirubin 2.1 H AST 68 H ALT 95 H Alkaline Phosphatase 85 Total Protein 8.0 Albumin 4.9 Lipase 135 Urine Color Dark yellow Urine Appearance Cloudy H Urine pH 5.5 Ur Specific [place] 1.033 Urine Protein 1+ H Urine Glucose (UA) Negative Urine Ketones 1+ H Ur Blood (Man) Negative Urine Nitrate Positive H Urine Bilirubin 2+ H Urine Urobilinogen 1.0 Add Ur Microanalysis Reviewed Leukocyte Esterase Rfl Trace H Urine RBC 0-2 Urine WBC 0-5 Ur Squamous Epith Cells Occasional Urine Bacteria 1+ Urine Casts 11-20 Hyaline Casts Present Urine Mucus Present C. difficile (PCR) 10/26/24 10/26/24 10/27/24 11:32 23:49 05:38 WBC 6.5 RBC 5.12 Hgb 15.2 D Hct 47.1 MCV 92.0 MCH 29.7 MCHC 32.3 RDW 13.2 Plt Count 206 MPV 10.3 Immature Gran % (Auto) 0.5 Neut % (Auto) 64.6 Lymph % (Auto) 20.3 [place] % (Auto) 9.9 H Eos % (Auto) 3.9 Baso % (Auto) 0.8 Lymph # (Auto) 1.31 [place] # (Auto) 0.6 Eos # (Auto) 0.3 Baso # (Auto) 0.1 Abs Immat Gran (auto) 0.03 Absolute Neuts (auto) 4.2 Absolute Nucleated RBC 0.000 Nucleated RBC % 0.0 Sodium 136 L Potassium 3.7 Chloride 104 Carbon Dioxide 25 Anion Gap 7 BUN 13 Creatinine 0.77 Estim Creat Clear Calc 137 Estimated GFR > 60 Glucose 87 Lactic Acid 0.9 Calcium 8.0 L Total Bilirubin 1.1 AST 65 H ALT 79 H Alkaline Phosphatase 59 Total Protein 6.0 L Albumin 3.6 Lipase Urine Color Urine Appearance Urine pH Ur Specific [place] Urine Protein Urine Glucose (UA) Urine Ketones Ur Blood (Man) Urine Nitrate Urine Bilirubin Urine Urobilinogen Add Ur Microanalysis Leukocyte Esterase Rfl Urine RBC Urine WBC Ur Squamous Epith Cells Urine Bacteria Urine Casts Hyaline Casts Urine Mucus C. difficile (PCR) Negative Quality VTE Prophylaxis VTE prophylaxis: pharmacologic ordered
[2024-10-27] MEDS: TAMSULOSIN HCL 0.4 MG CAPSULE PO (08:19)
[2024-10-27] MEDS: ATORVASTATIN 40 MG TABLET PO (08:19)
[2024-10-27] MEDS: ENOXAPARIN 40 MG/0.4 ML SYRINGE SUB-Q (08:20)
[2024-10-27] MEDS: LOSARTAN POTASSIUM 100 MG TABLET PO (09:07)
[2024-10-27] MEDS: hydroCHLOROthiazide 12.5 MG CAPSULE PO (09:07)
[2024-10-27] MEDS: FENOFIBRATE,MICRONIZED 48 MG TABLET PO (09:07)
[2024-10-27] MEDS: KETOROLAC 15 MG/ML VIAL (*BKC) IV PUSH (09:51)
[2024-10-27 12:50] LABS: Toxigenic C. Diff NEGATIVE (NEGATIVE)
[2024-10-27 14:00] VITALS: BP 131/85; PULSE 85; RESP 18; TEMP 36.5; O2SAT 96
[2024-10-27] MEDS: SODIUM CHLORIDE 0.9% IV 1,000 ML 125 ML IV CONT ×2 (14:49)
[2024-10-27 21:19] VITALS: BP 139/98; PULSE 88; RESP 18; TEMP 36.4; O2SAT 92
[2024-10-28] MEDS: metroNIDAZOLE 500 MG/ISO 100ML 500 MG/100 ML BAG 100 MG IVPB ×2 (03:05→09:06)
[2024-10-28] MEDS: SODIUM CHLORIDE 0.9% IV 1,000 ML 100 ML IV CONT (03:05)
[2024-10-28 04:29] VITALS: BP 150/99; PULSE 104; RESP 16; TEMP 36.6; O2SAT 91
[2024-10-28 07:11] LABS: Hematocrit 47.2 % (42.0-52.0); Hemoglobin 15.4 g/dL (14.0-18.0); Mean Corpuscular HGB Conc 32.6 g/dl (32-36); Mean Corpuscular Hemoglobin 29.3 pg (26-34); Mean Corpuscular Volume 89.9 fl (80-100); Mean Platelet Volume 10.6 fl (7.4-10.4); Platelet Count Result 208 k/mm3 (150-375); Red Blood Count 5.25 M/mm3 (4.6-6.20); White Blood Count 5.7 K/mm3 (4.5-10.0)
[2024-10-28 07:26] LABS: Alanine Aminotransferase 89 U/L (6-50); Alkaline Phosphatase 68 U/L (38-126); Anion Gap 9 mmol/L (4-12); Aspartate Amino Transferase 73 U/L (17-59); Bilirubin,Total 1.1 mg/dL (0.2-1.3); Blood Urea Nitrogen 8 mg/dL (9-20); Calcium 8.6 mg/dL (8.4-10.2); Carbon Dioxide 24 mmol/L (22-30); Chloride 104 mmol/L (98-107); Estimated CRCL calculation 129 ml/min; Estimated Glomerular Filt Rate > 60; Glucose 91 mg/dL (65-110); Potassium 3.5 mmol/L (3.4-5.0); Sodium 137 mmol/L (137-145)
[2024-10-28] MEDS: FENOFIBRATE,MICRONIZED 48 MG TABLET PO (09:05)
[2024-10-28] MEDS: ATORVASTATIN 40 MG TABLET PO (09:05)
[2024-10-28] MEDS: hydroCHLOROthiazide 12.5 MG CAPSULE PO (09:05)
[2024-10-28] MEDS: LOSARTAN POTASSIUM 100 MG TABLET PO (09:05)
[2024-10-28] MEDS: ENOXAPARIN 40 MG/0.4 ML SYRINGE SUB-Q (09:06)
[2024-10-28] MEDS: TAMSULOSIN HCL 0.4 MG CAPSULE PO (09:08)
--- NOTE | 2024-10-28 10:00 | PM.DS ---
DS: Admitting Diagnosis Discharge Date 10/28 Admitting Diagnosis uti, abd pain DS: Discharge Diagnosis Discharge Diagnosis (1) Sepsis: Code(s): A41.9 - Sepsis, unspecified organism Status: Acute (2) UTI (urinary tract infection): Code(s): N39.0 - Urinary tract infection, site not specified Status: Acute (3) Ileitis: Code(s): K52.9 - Noninfective gastroenteritis and colitis, unspecified Status: Acute (4) Fatty liver: Code(s): K76.0 - Fatty (change of) liver, not elsewhere classified Status: Acute (5) Hypertension: Qualifiers: Hypertension type: primary hypertension Qualified Code(s): I10 - Essential (primary) hypertension Code(s): I10 - Essential (primary) hypertension Status: Acute DS: Summary Hospital Course Hospital Course: 44 year old male with past medical history of hypertension and hyperlipidemia presents to the hospital for abdominal pain. Patient is pleasant sitting up comfortably in his chair. He continues to endorse diarrhea but notes that this has returned back to his baseline since prior cholecystectomy. Denies any blood in his stool. Notes that his abdominal pain has improved. Tolerated clears well- advanced to heart healthy diet- doing well. Patient has no other complaints denying chest pain, palpitations, and shortness of breath. Several issues were addressed: # sepsis Meets SIRS criteria: tachycardia, leukocytosis, lactic acidosis- RESOLVED - lactic acid: 2.3 > WNL - Sepsis bolus given in ED - suspected source: UTI - blood cultures drawn on 10/26: pending - UA: cloudy appearance with 1+ protein, 1+ ketones, positive nitrates, 2+ bili, trace leukocytes, 1+ bacteria. Occasional squamous. - Urine culture collected on 10/26: pending - CT abdomen/pelvis showed wall thickening in the distal ileum consistent with nonspecific ileitis which could be infectious or inflammatory, likely secondary to diarrhea with fluid in proximal colon, diffuse hepatic steatosis, and right basilar atelectasis along side the elevated right hemidiaphragm. wILL DOWNGRADE ANTIBIOTICS TO CEFDINIR- 8 MORE DOSES STARTING TOMORROW, 10/29 AND FLAGYL 500 MG q8H - 14 MORE DOSES # UTI - UA: cloudy appearance with 1+ protein, 1+ ketones, positive nitrates, 2+ bili, trace leukocytes, 1+ bacteria. Occasional squamous. - UC obtained on 10/26: pending - No previous micro to be reviewed - started on Rocephin on 10/26 # noninfective colitis - CT abdomen/pelvis showed wall thickening in the distal ileum consistent with nonspecific ileitis which could be infectious or inflammatory, likely secondary to diarrhea with fluid in proximal colon - Flagyl started on 10/26 - Gentle IV fluid resuscitation discontinued - Clear liquid diet, advance as tolerated - C dif negative - Monitor vital signs, I&Os, track stool output, watch for bloody stools, neuro status and patient is a fall risk - Monitor serum electrolytes and CBC # fatty liver - CT abdomen/pelvis showed diffuse hepatic steatosis - LFTs elevated on admission, tot bili 2.1, AST 68, ALT 95, alk phos 85. Downtrending. - WILL NEED TO F/U WITH PCP AND POSSIBLY GI. Time Spent with Patient Time attestation: Total time spent providing and/or coordinating discharge services: Exam Narrative: AF HR 102 RR 16 SPO2 92 BP 141/78 General: male in no acute respiratory distress who is nontoxic appearing, lying semi recumbent in bed. HEENT: Normocephalic. Atraumatic. Extraocular movement intact. Sclera clear and anicteric. No facial asymmetry. Chest: Lungs are clear to auscultation bilaterally. No wheezes or crackles. CV: Heart was regular rate and rhythm. S1/S2. No murmurs, gallops, or rubs. Abd: Abdomen was soft. Slight epigastric discomfort. Nondistended. Positive bowel sounds. Ext: No clubbing, cyanosis, or edema. DP pulses bilaterally. Neuro: Patient is alert and oriented x4. Speech is clear. DS: Data Data Completed and Pending Labs on day of discharge: Labs from last 24 hours 10/28/24 10/27/24 06:30 11:31 WBC 5.7 RBC 5.25 Hgb 15.4 Hct 47.2 MCV 89.9 MCH 29.3 MCHC 32.6 RDW 13.0 Plt Count 208 MPV 10.6 H Sodium 137 Potassium 3.5 Chloride 104 Carbon Dioxide 24 Anion Gap 9 BUN 8 L D Creatinine 0.82 Estim Creat Clear Calc 129 Estimated GFR > 60 Glucose 91 Calcium 8.6 Total Bilirubin 1.1 AST 73 H ALT 89 H Alkaline Phosphatase 68 Total Protein 7.0 Albumin 4.0 C. difficile (PCR) Negative Preliminary micro results at discharge 10/26/24 17:04 Blood Culture - Preliminary Blood 10/26/24 17:15 Blood Culture - Preliminary Blood Discharge Plan Discharge Attending physician on discharge: Rocky Swain Discharging Clinician: Taryn Davis Patient Disposition: Home Activity: may shower Diet: heart healthy Discharge Instructions: You were admitted for uti and noninfective colitis. You received IV antibiotics that were downgraded to oral: please see below doses that still needs to be completed: CEFDINIR-300 mg every 12 h, 8 MORE DOSES STARTING TOMORROW, AND FLAGYL 500 MG every 8H - 14 MORE DOSES # fatty liver - CT abdomen/pelvis showed diffuse hepatic steatosis - LFTs elevated on admission - WILL NEED TO F/U WITH PCP AND POSSIBLY GI. Patient Instructions: Antibiotic Form Patient Language: Syriac Stand Alone Forms: General Discharge Information Follow-up/Referrals: Juana Magana MD [Primary Care Provider] - 2 Weeks Discharge Medications: New tamsulosin 0.4 mg Capsule 0.4 mg PO QAM Qty: 90 0RF metronidazole 500 mg tablet 500 mg PO Q8H 14 Days Qty: 42 0RF cefdinir 300 mg capsule 300 mg PO Q12H Qty: 8 0RF Continued atorvastatin 40 mg tablet 40 mg PO DAILY Qty: 90 0RF losartan-hydrochlorothiazide 100-12.5 mg tablet 1 tablet PO DAILY Qty: 90 0RF fenofibrate 40 mg tablet 40 mg PO DAILY Qty: 90 0RF Discontinued hydrochlorothiazide 12.5 mg tablet 12.5 mg PO DAILY Date of admission: 10/26/24 12:21 Primary Care Provider: Juana Magana Admitting Provider: Honorio Boyle Attending physician on admission: Nora King Condition: Stable Quality VTE Prophylaxis VTE prophylaxis: pharmacologic ordered Hospitalist MIPS Heart Failure (Exclusion) Patient has history of Heart Transplant or Left Ventricular Assistive Device?: No IF YES, STOP HERE Heart Failure (Qualifier) Patient has current or prior documentation of LVEF less than or equal to 40%, or mod/servere depressed LVSF?: No IF NO, STOP HERE
== END 2024-10-28 12:55 | disposition home or self-care (01) ==
LOC: ANHED 12:11 → ANH3MEDSUR 10-27 06:53
PROVIDERS: Nurse Practitioner Gerontology; Student in an Organized Health Care Education/Training Program; Admitting Provider Internal Medicine; Emergency Provider Emergency Medicine; PCP Internal Medicine; Visit Provider Nurse Practitioner
DX: A41.9 Sepsis, unspecified organism (principal); N39.0 Urinary tract infection, site not specified; K52.9 Noninfective gastroenteritis and colitis, unspecified; E86.0 Dehydration; K76.0 Fatty (change of) liver, not elsewhere classified; I10 Essential (primary) hypertension; E78.5 Hyperlipidemia, unspecified; Z79.899 Other long term (current) drug therapy; Z87.891 Personal history of nicotine dependence; Z90.49 Acquired absence of other specified parts of digestive tract
CPT/HCPCS: 36415; 74177; 80053; 81001; 83605; 83690; 85025; 85027; 87040; 87086; 87493; 96361; 96365; 96366; 96367; 96372; 96375; 96376; 99285; A9270; G0378; J0696; J1171; J1650; J1836; J1885; J2405; J7030; Q9967

== ENCOUNTER 2024-12-14 00:29 | Day surgery (SDC) | payer OTHER, SELFPAY ==
[2024-12-01 13:28] VITALS: BMI 41.3
[2024-12-14 06:35] VITALS: BP 140/92; PULSE 94; RESP 18; TEMP 36.1; O2SAT 97; BMI 40.6
[2024-12-14] MEDS: LACTATED RINGERS 1,000 ML 150 ML IV CONT (06:52)
--- NOTE | 2024-12-14 07:04 | P.PNAN_ITS ---
Anes - Initial Pre Proc Eval Procedure: Operation Date: 12/14/24 08:00 Proposed Procedures p Colonoscopy - Maldonado Abrams MD Date/Time: 12/14/24 07:04 Surgeon: Maldonado Abrams MD Pre Op Diagnosis: Diarrhea, unspecified Patient Data Age: 44 Gender: M Height: 1.73 m Weight: 121.1 kg Last Vital Signs Temp 36.1 C L 12/14/24 06:35 Pulse 94 12/14/24 06:35 Resp 18 12/14/24 06:35 BP 140/92 H 12/14/24 06:35 Pulse Ox 97 12/14/24 06:35 O2 Del Method Room Air 12/14/24 06:35 Allergies Allergy/AdvReac Type Severity Reaction Status Date / Time No Known Allergies Allergy Verified 12/14/24 06:41 Home Medications ?Medication ?Instructions ?Recorded ?Confirmed ?Type atorvastatin 40 mg tablet 40 mg PO DAILY #90 tabs 10/28/24 12/14/24 Rx cefdinir 300 mg capsule 300 mg PO Q12H #8 caps 10/28/24 12/01/24 Rx fenofibrate 40 mg tablet 40 mg PO DAILY #90 tabs 10/28/24 12/01/24 Rx losartan 100 1 tablet PO DAILY #90 tabs 10/28/24 12/14/24 Rx mg-hydrochlorothiazide 12.5 mg tablet metronidazole 500 mg tablet 500 mg PO Q8H 14 days #42 tabs 10/28/24 12/01/24 Rx tamsulosin 0.4 mg capsule 0.4 mg PO QAM #90 caps 10/28/24 12/01/24 Rx Patient hx anesthesia problems: none Family hx anesthesia problems: none Results Review: All pre-operative results and documents have been reviewed as part of the pre- operative evaluation. [facility] Past Medical History Medical History (Updated 12/12/24 @ 11:02 by Roc Degroot DO) GERD (gastroesophageal reflux disease) MASON (obstructive sleep apnea) Hyperlipidemia Hypertension Surgical History Surgical History History of surgery on arm History of cholecystectomy Family History Family History Father Hypertension Social History Social History Social History: caffeine use: drinks soda occasionally Smoking packs per day: 2 Smoking cigarettes per day: 40.0 Years smoked: 23 Smoking pack-years: 46.00 Smoking status: Former smoker Tobacco type: cigarettes Smoking end date: 09/22/14 Additional smoking assessment comments: Smokes 4-5 cigars/year Alcohol intake: current Drinks per week: 20 Alcohol use details: drinks bourbon & vodka weekly Substance use: current Substance use type: marijuana Other substance usage details: medical use every other day. 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 Informed Consent: The patient's anesthetic plan and its attendant risks and benefits were discussed with the patient/family/POA. Questions were solicited and answers provided to the satisfaction of the patient/family/POA.
--- NOTE | 2024-12-14 07:54 | PM.IMHP ---
H&P: HPI History of Present Illness Date/Time: 12/14/24 07:54 Chief Complaint: History of ileitis-perianal abscess Narrative: the patient was hospitalized in October for an episode of acute diarrhea, finding as thickened ileum on CT scan. In addition, in July this year he was seen by surgery and was treated for perirectal abscess. He is currently asymptomatic, denied diarrhea, rectal bleeding but he does complain of minor perianal discharge; since he never had a colonoscopy, this will be a screening colonoscopy and will pay attention to this right colon and ileum to rule out Crohn's disease. Review of Systems Review of Systems: All systems reviewed & are unremarkable except as noted in HPI and below PMFSH Past Medical History Medical History (Updated 12/12/24 @ 11:02 by Roc Degroot DO) GERD (gastroesophageal reflux disease) MASON (obstructive sleep apnea) Hyperlipidemia Hypertension Surgical History Surgical History History of surgery on arm History of cholecystectomy Family History Family History Father Hypertension Social History Social History Social History: caffeine use: drinks soda occasionally Smoking packs per day: 2 Smoking cigarettes per day: 40.0 Years smoked: 23 Smoking pack-years: 46.00 Smoking status: Former smoker Tobacco type: cigarettes Smoking end date: 09/22/14 Additional smoking assessment comments: Smokes 4-5 cigars/year Alcohol intake: current Drinks per week: 20 Alcohol use details: drinks bourbon & vodka weekly Substance use: current Substance use type: marijuana Other substance usage details: medical use every other day. 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 Spiritual care concerns: No Meds Home Medications and Allergies Home Medications ?Medication ?Instructions ?Recorded ?Confirmed ?Type atorvastatin 40 mg tablet 40 mg PO DAILY #90 tabs 10/28/24 12/14/24 Rx cefdinir 300 mg capsule 300 mg PO Q12H #8 caps 10/28/24 12/01/24 Rx fenofibrate 40 mg tablet 40 mg PO DAILY #90 tabs 10/28/24 12/01/24 Rx losartan 100 1 tablet PO DAILY #90 tabs 10/28/24 12/14/24 Rx mg-hydrochlorothiazide 12.5 mg tablet metronidazole 500 mg tablet 500 mg PO Q8H 14 days #42 tabs 10/28/24 12/01/24 Rx tamsulosin 0.4 mg capsule 0.4 mg PO QAM #90 caps 10/28/24 12/01/24 Rx Allergies Allergy/AdvReac Type Severity Reaction Status Date / Time No Known Allergies Allergy Verified 12/14/24 06:41 Vital Signs Vital Signs - 24 hr 12/14/24 06:35 Temperature 96.9 F L Pulse Rate 94 Respiratory Rate 18 Blood Pressure 140/92 H Pulse Oximetry 97 Oxygen Delivery Room Air Exam Const: General: cooperative and healthy appearing Resp: Effort & Inspection: normal respiratory effort and able to speak in complete sentences Auscultation: clear to auscultation bilaterally Cardio: Rate: regular rate Rhythm: regular rhythm GI: Inspection: normal to inspection GI Palp: No No hepatosplenomegaly present Auscultation: normal bowel sounds Rectal Exam: deferred Skin: General skin exam: normal color Psych: Appearance: grossly normal Mental Status: mental status grossly normal Assessment and Plan Assessment and plan (1) Ileitis: Code(s): K52.9 - Noninfective gastroenteritis and colitis, unspecified Status: Acute Assessment and Plan: The patient is deemed a good candidate for the procedure. Consent signed. Will proceed.
--- NOTE | 2024-12-14 08:22 | S_PTH ---
PATIENT: Howard Dunaway LOC: [facility]#:[id number] AGE/SX: 44/M ROOM: RE12/14/[address]: Maldonado Abrams MD : 1980 BED: DIS: 12/14/2024 SPEC #: [id number] RECD: 12/14/24 10:39 STATUS: JAIRO REQ #: [id number] WEST: 12/14/24 08:[address]: Maldonado Abrams DEPT: [facility] Surgical RECD BY: Janet Ferraro ENTERED: 12/14/24 10:40 SP TYPE: Surgical OTHR DR: Juana Magana MD Tissues: A - Colon Biopsy B - Colon Biopsy C - Colon Biopsy Procedures: Hematoxylin and Eosin Stain Gross and Microscopic Level 4
[2024-12-14 08:29] VITALS: BP 100/59; PULSE 100; RESP 18; O2SAT 93
[2024-12-14 08:39] VITALS: BP 120/74; PULSE 92; RESP 20; O2SAT 94
[2024-12-14 08:49] VITALS: BP 114/68; PULSE 94; RESP 19; O2SAT 100
== END 2024-12-14 09:00 | disposition home or self-care (01) ==
PROVIDERS: PCP Internal Medicine; Referring Provider Internal Medicine; Visit Provider Internal Medicine Gastroenterology
PROC: 0DJD8ZZ Inspection of Lower Intestinal Tract, Via Natural or Artificial Opening Endoscopic (ICD-10-PCS; CPT 45378; principal; 2024-12-14 08:00)
DX: Z12.11 Encounter for screening for malignant neoplasm of colon (principal); K51.00 Ulcerative (chronic) pancolitis without complications; K64.0 First degree hemorrhoids; Z72.0 Tobacco use; F12.90 Cannabis use, unspecified, uncomplicated; E66.01 Morbid (severe) obesity due to excess calories; Z68.41 Body mass index [BMI] 40.0-44.9, adult
CPT/HCPCS: 45380; 88305; J2003; J2704; J7120